=== PATIENT | female | born 1990 | race Caucasian/White ===

== ENCOUNTER 2022-06-07 07:49 | Emergency (ER) | payer OTHER ==
[~2022-06-07] VITALS: Ht 172.7 cm; Wt 100.0 kg
[2022-06-07 09:53] VITALS: BP 119/68
== END 2022-06-07 10:02 | disposition home or self-care (01) ==
LOC: ED 07:49
DX: J10.1 Influenza due to other identified influenza virus with other respiratory manifestations (principal); F31.9 Bipolar disorder, unspecified; F17.290 Nicotine dependence, other tobacco product, uncomplicated; Z20.822 Contact with and (suspected) exposure to COVID-19